=== PATIENT | female | born 1980 | race African-American/Black ===

== ENCOUNTER 2016-12-10 07:20 | Emergency (ER) | payer SELFPAY ==
[~2016-12-10] VITALS: Ht 157.5 cm; Wt 77.1 kg
[~2016-12-10 07:20] MED LIST: DOXYCYCLINE HY100 M1 PO; FLEXERIL10 M1 PO; NAPROSYN500 MG PO; ULTRAM PO; VOLTAREN75 MG PO
[2016-12-10 08:45] LABS: URINE SOURCE CLEAN CATCH
[2016-12-10 09:01] LABS: URINE APPEARANCE CLEAR; URINE BILIRUBIN NEG (NEG); URINE BLOOD NEG (NEG); URINE COLOR YELLOW; URINE GLUCOSE NEG (NEG); URINE KETONE NEG (NEG); URINE LEUKOCYTE ESTERASE 1+ (NEG); URINE NITRATE NEG (NEG); URINE PROTEIN NEG (NEG); URINE SPECIFIC GRAVITY 1.023 (1.003-1.035)
[2016-12-10 09:03] LABS: CULTURE INDICATED? YES; URBCS1 AUWI 0-2 /[HPF] (0-2); URINE BACTERIA AUWI NEG (NEGATIVE); URINE SQUAMOUS EPITHELIAL CELL NONE SEEN /[HPF]
[2016-12-13 09:43] LABS: CHLAMYDIA TRACH Not Detected (Not Detected); N GONOR Not Detected (Not Detected)
== END 2016-12-10 09:27 | disposition home or self-care (01) ==
LOC: CED 07:20
PROVIDERS: Physician Assistant
DX: B37.3 Candidiasis of vulva and vagina (principal); N30.00 Acute cystitis without hematuria
CPT/HCPCS: 81003; 84703; 87086; 87491; 87591; 87808; 87905; 96372; 99284; J0696